=== PATIENT | female | born 1980 | race Caucasian/White ===

== ENCOUNTER 2016-12-04 08:15 | Emergency (ER) | payer MEDICAID ==
--- NOTE | ~2016-12-04 | CR127 ---
[facility] A Service of [facility] & [facility] RADIOLOGY TEXT RESULTS PATIENT: LEONIE BILL LOCATION: SED : [birth year] UNIT #: [id number] AGE: [address]: Gulshan Altamirano MD SEX: F ORDER DR: [id number] [place] [id number] E MR#: [id number] Acc #: [id number] NAME: LEONIE BILL : 1980 SEX: F STUDY DATE/TIME: 12/04/2016 8:01 UNIT: SED ROOM: STUDY DESCRIPTION: CR Foot Complete Min 3 View Rt Attending Physician: Gulshan Altamirano M.D. Ordering Physician: Gulshan Altamirano M.D. Primary Care Physician: Primary Care Physician No MEDICAL IMAGING REPORT This report is preliminary unless electronic signature is present. EXAM Right foot 12/04/2016 HISTORY 36-year-old female patient with unexplained pain right foot and ankle since Thursday. Symptoms increasing. FINDINGS 3 views of the right foot demonstrate no fracture. Cortex is preserved throughout. Mineralization is normal. Small joints are preserved. Soft tissues appear unremarkable. IMPRESSION Negative right foot. Dictated by... Mark Brenner M.D. THIS IS AN ELECTRONICALLY VERIFIED REPORT Mark Brenner M.D. at 12/04/2016 2:29 PM Chucho TD: 12/04/2016 13:16 JOB #: [id number] MEDICAL IMAGING REPORT
--- NOTE | ~2016-12-04 | CR21 ---
[facility] A Service of [facility] & [facility] RADIOLOGY TEXT RESULTS PATIENT: LEONIE BILL LOCATION: SED : 80 UNIT #: [id number] AGE: [address]: Gulshan Altamirano MD SEX: F ORDER DR: [id number] [place] [id number] E MR#: [id number] Acc #: [id number] NAME: LEONIE BILL : 1980 SEX: F STUDY DATE/TIME: 12/04/2016 8:01 UNIT: SED ROOM: STUDY DESCRIPTION: CR Ankle Min 3 Views Rt Attending Physician: Gulshan Altamirano M.D. Ordering Physician: Gulshan Altamirano M.D. Primary Care Physician: Primary Care Physician No MEDICAL IMAGING REPORT This report is preliminary unless electronic signature is present. EXAM Right ankle, 12/04/2016 HISTORY 36-year-old female patient with right ankle and foot pain. Symptoms increasing. Symptoms since last Thursday. FINDINGS 3 views of the right ankle demonstrate preservation of the ankle mortise. Bone mineralization is preserved and cortex intact. Soft tissues are normal. IMPRESSION Negative right ankle. Dictated by... Mark Brenner M.D. THIS IS AN ELECTRONICALLY VERIFIED REPORT Mark Brenner M.D. at 12/04/2016 2:29 PM Ama TD: 12/04/2016 13:21 JOB #: [id number] MEDICAL IMAGING REPORT
[~2016-12-04 08:15] MED LIST: AMOXICILLIN500 M1 PO; BACTRIM DS TABL1 TA1 PO; NO MEDICATIONS; PYRIDIUM100 MG PO; VICODIN 5/500 T1 TAB PO
== END 2016-12-04 08:37 | disposition home or self-care (01) ==
LOC: SED 08:15
DX: M72.2 Plantar fascial fibromatosis (principal); M13.871 Other specified arthritis, right ankle and foot
CPT/HCPCS: 29540; 73610; 73630; 99283